=== PATIENT | female | born 1965 | race Caucasian/White ===

== ENCOUNTER → 2017-01-22 | Outpatient (CLI) | payer OTHER ==
[~2017-01-22] MED LIST: ASPIRIN 325MG325 MG PO; ASPIRIN 81MG TA81 MG PO; BOT RE; CIPRO 500MG TA500 MG PO; COZAAR 50 MG TA50 MG PO; EFFIENT10 M1 PO; EFFIENT10 M2 PO; FLEXERIL10 MG PO; IBU-8800 MG PO; LIPITOR80 MG PO; LIVALO2 MG PO; LORTAB 5/500 501 TAB PO; NATURE'S BLEN1000 MG PO; NIACIN500 MG PO; NORCO 325 MG-51 TAB PO; PANTOPRAZOLE SO40 M1 PO; PRILOSEC20 M1 PO; PROBIOTIC1 EAC4 PO; RANEXA500 M1 PO; SUNMARK NI21 MG/24 H TD; VICODIN 5/500 T1 TAB PO; [UNRECOGNIZED DRUG - OTHER] RE
== END ==
LOC: RT 09:00
DX: R06.02 Shortness of breath (principal)

== ENCOUNTER 2017-07-17 19:38 | Emergency (ER) | payer OTHER ==
[~2017-07-17] VITALS: Ht 160 cm; Wt 69.9 kg
[2017-07-17 19:56] LABS: LYMPH # 2.8 K/mm3 (0.7-4.5); LYMPH % 36.3 % (10-50.0)
[2017-07-17 20:07] LABS: HEMOGLOBIN 10.4 g/dL (12.2-16.2)
[2017-07-17 20:21] LABS: BUN 14 mg/dL (7-18)
[2017-07-17 20:23] LABS: GFR (ESTIMATED) 52 ML/MIN (59-)
--- NOTE | 2017-07-17 20:33 | Emergency Room Report ---
History of Present Illness Time Seen by 2017 Presenting Problem in Triage Pt arrived:Walked Presenting Problem:CHEST PAIN FOR 3 DAYS, OFF/ON, HAS CARDIAC HISTORY. 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 N Clinical Suspician of Infection? N Mental Status: 1 - Regular (Normal Baseline) Sepsis Risk:Low Sepsis Risk Have you (or family members/close friends) recently traveled outside the [place]? N If Yes, where/when: Have you had exposure to infectious disease within the past month? N TB? Other? Specify: Source patient, RN notes reviewed, family, RN/MD Exam Limitations no limitations Comment This is a 52-year-old female patient presenting to the emergency room with 3 days of midsternal chest pain, radiating to the LEFT shoulder and LEFT jaw. Patient has a history of coronary artery disease, and she already has 2 stents. Her chest pain over the past 2 days has been mostly exertional, patient did not take any nitroglycerin at home, however she has been having a more persistent cough then usual (she is a smoker). Dr. Gaitan has performed the cardiac catheterization on her in November 2016 revealing no new coronary blockages. ALLERGIES Coded Allergies: oxycodone (Severe, 12/30/16) levofloxacin (From LEVAQUIN) (Intermediate, 12/30/16) codeine (Mild, 12/30/16) morphine (12/30/16) Home Medications Active Scripts Atorvastatin Calcium (Atorvastatin) 80 MG PO QHS #30 TABLET Ref 2 Prov: 01/01/17 Prasugrel HCl (Effient) 10 MG PO DAILY #30 TAB Ref 2 Prov: 01/01/17 Reported Medications Losartan Potassium (Cozaar 50 Mg Tablet) 100 MG PO DAILY RANOLAZINE (RANEXA) 500 MG PO BID ASPIRIN (Aspirin) 81 MG PO DAILY History Medical History General CAD? Yes Angina: Yes [place]: Yes Hypertension? Yes Hyperlipidemia? Yes CHF? No DVT? No PE? No COPD? Yes Asthma? No Anemia? Yes GERD? No Gastric ulcers? No GI Bleed? No Hernia? No Thyroid Problems? Yes CVA? No Seizures? No Diabetes? No Insulin Dependent: No Insulin Pump: No Home FSBS? No Renal Insuffiency? No End Stage Renal Disease? No UTI? Yes Stones? No BPH? No GB Disease: Yes Nephritic Syndrome? No Asplenia? No Hepatitis? No Sickle Cell Disease? No Arthritis? No Migraines? No Cataracts? No Glaucoma? No MRSA? No HIV? No TB? No Anxiety? No Depression? No Cancer? 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/A Family History Family Hx Diabetes Yes CAD Yes Hypertension Yes Hyperlipidemia No Cancer No TB No Social History Smoking Hx Smoker: Current Every Day Smoker Tobacco: Yes Type Cigarettes Packs/day 1 1/2 - 2 Packs Alcohol Alcohol: No Review of Systems All Other Systems Reviewed and Negative Cardiovascular chest pain Physical Exam Vital Signs Vital Signs Date Time Temp Pulse Resp B/P Pulse O2 O2 Flow FiO2 Ox Delivery Rate 07/17 2134 98.2 66 20 146/77 98 07/17 2118 66 20 146/77 98 07/17 2035 67 20 143/78 98 07/17 194 98.2 74 20 181/76 100 General Appearance normal appearance, WD/WN, no apparent distress Respiratory Status Yes: trachea midline, chest symmetrical, non tender chest. No: respiratory distress. Lung Sounds bilateral: normal breath sounds, lungs clear. Cardiovascular normal exam, regular rate/rhythm, no peripheral edema, no gallop, no JVD, no murmur, no rub, normal peripheral pulses Gastrointestinal normal bowel sounds, normal exam, non tender, soft, no organomegaly Extremities non-tender, normal range of motion, normal inspection Neurologic alert, enamel pulverizer II-XII nml as tested, normal exam, oriented x 3 Mental status normal mood/affect Skin intact, normal color, warm/dry Medical Decision Making LABS/Meds/Orders Pt receiving controlled substance in ED? No Comment 2114-upon reevaluation patient appears medically stable, in no acute distress, with no further chest pain. Advised patient of results obtained, need for her to follow-up with Dr. Gaitan for outpatient workup. Results/Orders Laboratory Tests 07/17/17 1950: B-Natriuretic Peptide 50, Amylase 43, Lipase 148, D-Dimer < 100 07/17/171949: Sodium 141, Potassium 3.2 L, Chloride 103, Carbon Dioxide 27, BUN 14, Creatinine 1.1 H, Estimated Creat Clear 65, Estimated GFR (MDRD) 52 L, Glucose 128 H, Calcium 9.1, Total Bilirubin 0.4, AST 16, ALT 17, Alkaline Phosphatase 140 H, Creatine Kinase 107, CK-MB (CK-2) Rel Index 0.7, CK and CKMB Interp 0.8, Troponin I < 0.02, Total Protein 7.4, Albumin 3.8, Globulin 3.6 H, Albumin/ Globulin Ratio 1.1, PT 10.5, INR 0.97, APTT 26.7, WBC 7.6, RBC 3.93 L, Hgb 10.4 L, Hct 31.5 L, MCV 80.2 L, RDW 13.7, Plt Count 263, MPV 8.3, Gran % 55.3, Gran # 4.2, Lymphocytes % 36.3, Monocytes % 6.0, Eosinophils % 1.9, Basophils % 0.6, Lymphocytes # 2.8, Monocytes # 0.5, Eosinophils # 0.1, Basophils # 0.0, PUBS MCHC 32.7, MCH 26.2 L Current Medication Orders Sig/Lucy Start time Last Medication Dose Route Stop Time Status Admin Potassium Chloride 40 MEQ ONCE ONE 07/17 2130 DC 07/17 PO 07/17 Potassium Chloride 0 .STK-MED ONE 07/17 2123 DC PO Sodium Chloride 10 ML PRN PRN 07/17 2000 DCD IV 07/18 1951 Orders Procedure Date/time Status PARTIAL THROMBOPLASTIN TIME 07/17 2032 Complete PROTHROMBIN TIME 07/17 2032 Complete LIPASE 07/17 2032 Complete D-DIMER 07/17 2032 Complete BRAIN NATRIURETIC PEPTIDE 07/17 2032 Complete AMYLASE 07/17 2032 Complete 12 LEAD EKG-LEONARDO (INITIAL) 07/17 1951 Active ELECTROCARDIOGRAM REQUEST 07/17 1951 Active IV SALINE LOCK 07/17 1951 Active CBC WITH AUTO DIFF 07/17 1951 Complete CARDIAC ENZYMES 07/17 1951 Complete CHEM 12 PROFILE 07/17 1951 Complete CM/EKG CM/date puller Rhythm Normal Sinus Rhythm Rate 88 Ectopy No Comments No acute ischemic changes EKG rate, NSR, rhythm, no evid. of ischemic chgs, no ectopy, normal QRS, normal [place], no EKG for comparison, non-spec. ST/Twave chgs, ST elevation, ST depression, LBBB, RBBB, ectopy, abnormal Q waves XRAY/CT/US XRAY/CT/US XRAY chest XR interpretation by discussed w/radiologist Xray Results no infiltrates, normal heart size, normal lung inflation beba Departure Departure Time of Disposition 2121 Disposition DC Home or Self Care(routine) Clinical Impression Primary Impression: Chest pain Qualifiers: Chest pain type: unspecified Qualified Code: R07.9 - Chest pain, unspecified Secondary Impressions: Anemia Qualifiers: Anemia type: unspecified type Qualified Code: D64.9 - Anemia, unspecified Hypokalemia Condition STABLE Referrals Yo Gaitan MD: Tomorrow-Call Office Patient Instructions Anemia of Chronic Disease, DI for Chest Pain, DI for Hypokalemia Additional Instructions Please follow-up with Dr. Yo Gaitan within the next 2 days, for additional outpatient evaluation. Discharge Counseling Counseled pt/family regarding diagnosis, test results, medications/RX, home care, follow up needs Comment Please follow-up with Dr. Yo Gaitan within the next 2 days, for additional outpatient evaluation. ED Critical Care Critical Care No at [id number]
--- NOTE | 2017-07-17 20:33 | Emergency Room Report ---
History of Present Illness Time Seen by 2017 Presenting Problem in Triage Pt arrived:Walked Presenting Problem:CHEST PAIN FOR 3 DAYS, OFF/ON, HAS CARDIAC HISTORY. 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 N Clinical Suspician of Infection? N Mental Status: 1 - Regular (Normal Baseline) Sepsis Risk:Low Sepsis Risk Have you (or family members/close friends) recently traveled outside the [place]? N If Yes, where/when: Have you had exposure to infectious disease within the past month? N TB? Other? Specify: Source patient, RN notes reviewed, family, RN/MD Exam Limitations no limitations Comment This is a 52-year-old female patient presenting to the emergency room with 3 days of midsternal chest pain, radiating to the LEFT shoulder and LEFT jaw. Patient has a history of coronary artery disease, and she already has 2 stents. Her chest pain over the past 2 days has been mostly exertional, patient did not take any nitroglycerin at home, however she has been having a more persistent cough then usual (she is a smoker). Dr. Gaitan has performed the cardiac catheterization on her in November 2016 revealing no new coronary blockages. ALLERGIES Coded Allergies: oxycodone (Severe, 12/30/16) levofloxacin (From LEVAQUIN) (Intermediate, 12/30/16) codeine (Mild, 12/30/16) morphine (12/30/16) Home Medications Active Scripts Atorvastatin Calcium (Atorvastatin) 80 MG PO QHS #30 TABLET Ref 2 Prov: 01/01/17 Prasugrel HCl (Effient) 10 MG PO DAILY #30 TAB Ref 2 Prov: 01/01/17 Reported Medications Losartan Potassium (Cozaar 50 Mg Tablet) 100 MG PO DAILY RANOLAZINE (RANEXA) 500 MG PO BID ASPIRIN (Aspirin) 81 MG PO DAILY History Medical History General CAD? Yes Angina: Yes [place]: Yes Hypertension? Yes Hyperlipidemia? Yes CHF? No DVT? No PE? No COPD? Yes Asthma? No Anemia? Yes GERD? No Gastric ulcers? No GI Bleed? No Hernia? No Thyroid Problems? Yes CVA? No Seizures? No Diabetes? No Insulin Dependent: No Insulin Pump: No Home FSBS? No Renal Insuffiency? No End Stage Renal Disease? No UTI? Yes Stones? No BPH? No GB Disease: Yes Nephritic Syndrome? No Asplenia? No Hepatitis? No Sickle Cell Disease? No Arthritis? No Migraines? No Cataracts? No Glaucoma? No MRSA? No HIV? No TB? No Anxiety? No Depression? No Cancer? 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/A Family History Family Hx Diabetes Yes CAD Yes Hypertension Yes Hyperlipidemia No Cancer No TB No Social History Smoking Hx Smoker: Current Every Day Smoker Tobacco: Yes Type Cigarettes Packs/day 1 1/2 - 2 Packs Alcohol Alcohol: No Review of Systems All Other Systems Reviewed and Negative Cardiovascular chest pain Physical Exam Vital Signs Vital Signs Date Time Temp Pulse Resp B/P Pulse O2 O2 Flow FiO2 Ox Delivery Rate 07/17 2134 98.2 66 20 146/77 98 07/17 2118 66 20 146/77 98 07/17 2035 67 20 143/78 98 07/17 194 98.2 74 20 181/76 100 General Appearance normal appearance, WD/WN, no apparent distress Respiratory Status Yes: trachea midline, chest symmetrical, non tender chest. No: respiratory distress. Lung Sounds bilateral: normal breath sounds, lungs clear. 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 No Comment 2114-upon reevaluation patient appears medically stable, in no acute distress, with no further chest pain. Advised patient of results obtained, need for her to follow-up with Dr. Gaitan for outpatient workup. Results/Orders Laboratory Tests 07/17/17 1950: B-Natriuretic Peptide 50, Amylase 43, Lipase 148, D-Dimer < 100 07/17/171949: Sodium 141, Potassium 3.2 L, Chloride 103, Carbon Dioxide 27, BUN 14, Creatinine 1.1 H, Estimated Creat Clear 65, Estimated GFR (MDRD) 52 L, Glucose 128 H, Calcium 9.1, Total Bilirubin 0.4, AST 16, ALT 17, Alkaline Phosphatase 140 H, Creatine Kinase 107, CK-MB (CK-2) Rel Index 0.7, CK and CKMB Interp 0.8, Troponin I < 0.02, Total Protein 7.4, Albumin 3.8, Globulin 3.6 H, Albumin/ Globulin Ratio 1.1, PT 10.5, INR 0.97, APTT 26.7, WBC 7.6, RBC 3.93 L, Hgb 10.4 L, Hct 31.5 L, MCV 80.2 L, RDW 13.7, Plt Count 263, MPV 8.3, Gran % 55.3, Gran # 4.2, Lymphocytes % 36.3, Monocytes % 6.0, Eosinophils % 1.9, Basophils % 0.6, Lymphocytes # 2.8, Monocytes # 0.5, Eosinophils # 0.1, Basophils # 0.0, PUBS MCHC 32.7, MCH 26.2 L Current Medication Orders Sig/Lucy Start time Last Medication Dose Route Stop Time Status Admin Potassium Chloride 40 MEQ ONCE ONE 07/17 2130 DC 07/17 PO 07/17 Potassium Chloride 0 .STK-MED ONE 07/17 2123 DC PO Sodium Chloride 10 ML PRN PRN 07/17 2000 DCD IV 07/18 1951 Orders Procedure Date/time Status PARTIAL THROMBOPLASTIN TIME 07/17 2032 Complete PROTHROMBIN TIME 07/17 2032 Complete LIPASE 07/17 2032 Complete D-DIMER 07/17 2032 Complete BRAIN NATRIURETIC PEPTIDE 07/17 2032 Complete AMYLASE 07/17 2032 Complete 12 LEAD EKG-LEONARDO (INITIAL) 07/17 1951 Active ELECTROCARDIOGRAM REQUEST 07/17 1951 Active IV SALINE LOCK 07/17 1951 Active CBC WITH AUTO DIFF 07/17 1951 Complete CARDIAC ENZYMES 07/17 1951 Complete CHEM 12 PROFILE 07/17 1951 Complete CM/EKG CM/carbon cutter Rhythm Normal Sinus Rhythm Rate 88 Ectopy No Comments No acute ischemic changes EKG rate, NSR, rhythm, no evid. of ischemic chgs, no ectopy, normal QRS, normal [place], no EKG for comparison, non-spec. ST/Twave chgs, ST elevation, ST depression, LBBB, RBBB, ectopy, abnormal Q waves XRAY/CT/US XRAY/CT/US XRAY chest XR interpretation by discussed w/radiologist Xray Results no infiltrates, normal heart size, normal lung inflation beba Departure Departure Time of Disposition 2121 Disposition DC Home or Self Care(routine) Clinical Impression Primary Impression: Chest pain Qualifiers: Chest pain type: unspecified Qualified Code: R07.9 - Chest pain, unspecified Secondary Impressions: Anemia Qualifiers: Anemia type: unspecified type Qualified Code: D64.9 - Anemia, unspecified Hypokalemia Condition STABLE Referrals Yo Gaitan MD: Tomorrow-Call Office Patient Instructions Anemia of Chronic Disease, DI for Chest Pain, DI for Hypokalemia Additional Instructions Please follow-up with Dr. Yo Gaitan within the next 2 days, for additional outpatient evaluation. Discharge Counseling Counseled pt/family regarding diagnosis, test results, medications/RX, home care, follow up needs Comment Please follow-up with Dr. Yo Gaitan within the next 2 days, for additional outpatient evaluation. ED Critical Care Critical Care No at [id number]
[2017-07-17 21:34] VITALS: BP 146/77
--- NOTE | 2017-07-18 05:08 | RADIOLOGY REPORT PS360 ---
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 A small area of patchy density is noted in the right perihilar region and may be due to summation artifact. Upright PA and lateral chest may confirm. There is increased density right lung base consistent with pneumonia. The remaining lungs are clear. No acute bony anomalies. IMPRESSION: Right lower lobe pneumonia. Probable summation artifact right midlung. Consider upright PA and lateral chest for further evaluation
== END 2017-07-17 21:35 | disposition home or self-care (01) ==
LOC: ER 19:38
PROVIDERS: Emergency Medicine
DX: R07.9 Chest pain, unspecified (principal); J44.9 Chronic obstructive pulmonary disease, unspecified; D64.9 Anemia, unspecified; F17.210 Nicotine dependence, cigarettes, uncomplicated; E87.6 Hypokalemia; I25.10 Atherosclerotic heart disease of native coronary artery without angina pectoris; Z88.6 Allergy status to analgesic agent; Z79.82 Long term (current) use of aspirin; I10 Essential (primary) hypertension

== ENCOUNTER → 2017-08-05 | Outpatient (CLI) | payer OTHER ==
[2017-08-05 19:44] LABS: BUN 16 mg/dL (7-18)
[2017-08-05 19:52] LABS: GFR (ESTIMATED) 58 ML/MIN (59-)
== END ==
LOC: LAB 15:27
PROVIDERS: Nurse Practitioner Acute Care
DX: I25.10 Atherosclerotic heart disease of native coronary artery without angina pectoris (principal); R06.09 Other forms of dyspnea; E87.6 Hypokalemia; R09.89 Other specified symptoms and signs involving the circulatory and respiratory systems

== ENCOUNTER → 2017-08-11 | Outpatient (CLI) | payer OTHER | LOC: LAB 06:29 | DX: R10.84 Generalized abdominal pain (principal) ==